=== PATIENT | female | born 1965 | race Caucasian/White ===

== ENCOUNTER 2021-08-13 23:20 | Observation (INO) | payer SELFPAY ==
[2021-08-14 00:16] LABS: #Basophils 0.1 thou/uL (0.0-0.2); #Eosinphils 0.1 thou/uL (0.0-0.7); #Lymphocytes 3.3 thou/uL (1.20-3.40); #Monocytes 0.9 thou/uL (0.11-0.59); #Neutrophils 5.5 thou/uL (1.40-6.50); %Basophils 0.7 % (0.0-1.0); %Monocytes 9.3 % (0.0-10.0); Hemoglobin 14.6 g/dL (12.0-16.0); Mean Corpuscular HGB CONC 34.8 g/dL (32.0-36.0); Mean Corpuscular Volume 92.1 fL (78.0-98.0); Mean Platelet Volume 7.1 fL (7.4-10.4); Platelet Count 340 thou/uL (130-400); RBC Distribution Width 12.2 % (11.5-14.5); Red Blood Cell (RBC) Count 4.56 mill/uL (4.20-5.40); White Blood Cell (WBC) Count 9.9 thou/uL (4.8-10.8)
[2021-08-14 00:37] LABS: ALT (SGPT) 29 U/L (8-55); AST (SGOT) 23 U/L (5-34); Albumin 4.1 g/dL (3.5-5.0); Alkaline Phosphatase 94 U/L (40-110); Anion Gap 19 mmol/L (10-20); BUN (Urea Nitrogen) 14 mg/dL (9.8-20.1); Bilirubin, Total 0.3 mg/dL (0.2-1.2); Calc. Creatinine Clearance 0 mL/min (70-130); Calcium 8.8 mg/dL (7.8-10.44); Carbon Dioxide 17 mmol/L (22-29); Chloride 112 mmol/L (98-107); Globulin 3.6 g/dL (2.4-3.5); Glucose 138 mg/dL (70-105); Potassium 4.4 mmol/L (3.5-5.1); Protein, Total 7.7 g/dL (6.0-8.3); Sodium 144 mmol/L (136-145)
[2021-08-14] MEDS ORDERED: Nitroglycerin 2% Ointment 1 INCH/1 GM Packet ONE (01:33)
[2021-08-14 01:47] LABS: Magnesium 2.1 mg/dL (1.6-2.6)
[2021-08-14 04:41] VITALS: BMI 23.5
[2021-08-14 07:12] LABS: Troponin I Less than 0.010 ng/mL (< 0.028)
[2021-08-14] MEDS ORDERED: Nitroglycerin 0.4 MG TAB (25 Tab Bottle) SL PRN (08:14)
[2021-08-14] MEDS ORDERED: Ondansetron PF 4 MG/2 ML Vial IVP PRN (08:14)
[2021-08-14] MEDS ORDERED: Enoxaparin Sodium 40 MG/0.4 ML SYRINGE SC SCH (08:15)
[2021-08-14 08:44] LABS: SARS-CoV-2 NAA Rapid Test Not Detected (NotDetected)
[2021-08-14 08:47] LABS: Hemoglobin A1c 5.9 % (4.0-6.0)
[2021-08-14 09:03] LABS: Cardiac Risk 4.8 (Less than 4.5)
[2021-08-14 09:05] LABS: Troponin I Less than 0.010 ng/mL (< 0.028)
[2021-08-14 09:20] LABS: Free T4 (Free Thyroxine) 0.98 ng/dL (0.70-1.48); Thyroid Stimulating Hormone 1.7093 uIU/mL (0.35-4.94)
[2021-08-14] MEDS ORDERED: Aspirin Chewable 81 MG TAB ONE (10:16)
[2021-08-14] MEDS ORDERED: Folic Acid 1 MG TAB ONE (10:16)
[2021-08-14] MEDS ORDERED: Metoprolol Tartrate 25 MG TAB ONE (10:16)
[2021-08-14] MEDS ORDERED: Enoxaparin Sodium 40 MG/0.4 ML SYRINGE ONE (10:17)
[2021-08-14] MEDS: Enoxaparin Sodium 40 MG/0.4 ML SYRINGE SC SCH (10:28)
[2021-08-14] MEDS: Metoprolol Tartrate 25 MG TAB PO SCH ×2 (10:28→20:25)
[2021-08-14] MEDS: Multivitamin W/ Minerals 1 TAB PO SCH (10:28)
[2021-08-14] MEDS: Aspirin Chewable 81 MG TAB PO SCH (10:28)
[2021-08-14] MEDS: Folic Acid 1 MG TAB PO SCH (10:28)
[2021-08-14] MEDS: Thiamine 100 MG TAB PO SCH (10:30)
[2021-08-15] MEDS ORDERED: ADENOSINE 60 MG/20 ML VIAL ONE (11:34)
[2021-08-15] MEDS: Multivitamin W/ Minerals 1 TAB PO SCH (13:44)
[2021-08-15] MEDS: Metoprolol Tartrate 25 MG TAB PO SCH (13:44)
[2021-08-15] MEDS: Aspirin Chewable 81 MG TAB PO SCH (13:44)
[2021-08-15] MEDS: Thiamine 100 MG TAB PO SCH (13:44)
[2021-08-15] MEDS: Enoxaparin Sodium 40 MG/0.4 ML SYRINGE SC SCH (13:44)
[2021-08-15] MEDS: Folic Acid 1 MG TAB PO SCH (13:44)
[2021-08-15 15:33] VITALS: BP 138/82; TEMP 97.8
== END 2021-08-15 18:56 | disposition home or self-care (01) ==
LOC: ERS 23:20 → ERHOLD 08-14 01:24 → 2NO 08-14 01:50 → PACU-TCU 08-14 11:37 → 2NO 08-14 15:52
PROVIDERS: ADMIT Internal Medicine; ATTEND Internal Medicine
DX: R07.89 Other chest pain (principal); F10.10 Alcohol abuse, uncomplicated; E78.5 Hyperlipidemia, unspecified; I10 Essential (primary) hypertension; I44.7 Left bundle-branch block, unspecified; I08.1 Rheumatic disorders of both mitral and tricuspid valves; Z86.73 Personal history of transient ischemic attack (TIA), and cerebral infarction without residual deficits; Z91.14 Patient's other noncompliance with medication regimen; Z91.19 Patient's noncompliance with other medical treatment and regimen; Z79.82 Long term (current) use of aspirin; Z79.899 Other long term (current) drug therapy; Z88.5 Allergy status to narcotic agent; Z20.822 Contact with and (suspected) exposure to COVID-19
CPT/HCPCS: 36415; 71045; 78452; 80053; 80061; 83036; 83735; 83880; 84439; 84443; 84481; 84484; 85025; 93005; 93017; 93306; 94760; 96372; A9500; G0378; J0153; J1650; U0002